=== PATIENT | male | born 1940 | race Caucasian/White ===

== ENCOUNTER 2022-10-05 11:54 | Emergency (ER) | payer MEDICARE, OTHER ==
[2022-10-05 14:32] LABS: URINE BILIRUBIN - DIPSTICK NEGATIVE (NEGATIVE); URINE BLOOD DIPSTICK LARGE (NEGATIVE); URINE COLOR YELLOW; URINE GLUCOSE - DIPSTICK NEGATIVE (NEGATIVE); URINE KETONE NEGATIVE (NEGATIVE); URINE PROTEIN - DIPSTICK NEGATIVE (NEG-TRACE); URINE SPECIFIC GRAVITY <=1.005; URINE UROBILINOGEN - DIPSTICK 0.2 E.U./dL (0.2)
[2022-10-05 14:33] LABS: URINE LEUK ESTERASE MODERATE (NEGATIVE); URINE NITRITE - DIPSTICK NEGATIVE (Negative)
[2022-10-05 14:40] LABS: URINE BACTERIA MANY hpf; URINE CASTS FEW lpf (NONE-RARE); URINE SQUAMOUS EPITHELIAL CELL RARE EPI/hpf (0-FEW); URINE WBC 20-50 WBC/hpf (0-5); URINE WHITE BLOOD CELL CAST RARE lpf
[2022-10-05] MEDS ORDERED: OMNICEF300 M1 PO (14:46)
[2022-10-05 15:24] VITALS: BP 148/82
== END 2022-10-05 15:30 | disposition home or self-care (01) ==
LOC: ED 11:54
PROVIDERS: Family Medicine
PROC: 0HQFXZZ Repair Right Hand Skin, External Approach (ICD-10-PCS; principal; 2022-10-05)
DX: S61.411A Laceration without foreign body of right hand, initial encounter (principal); G82.20 Paraplegia, unspecified; T14.8XXS Other injury of unspecified body region, sequela; X58.XXXA Exposure to other specified factors, initial encounter; R82.71 Bacteriuria